=== PATIENT | female | born 1980 | race African-American/Black ===

== ENCOUNTER 2017-03-27 11:03 | Emergency (ER) | payer OTHER ==
[~2017-03-27] VITALS: Ht 190.5 cm; Wt 85.3 kg
[2017-03-27] MEDS ORDERED: IBUPROFEN 600600 M1 PO (11:32)
[2017-03-27] MEDS ORDERED: TIZANIDINE HCL4 MG PO (11:32)
[2017-03-27 11:53] VITALS: BP 120/85
== END 2017-03-27 11:54 | disposition home or self-care (01) ==
LOC: ER 11:03
DX: M54.12 Radiculopathy, cervical region (principal); F17.210 Nicotine dependence, cigarettes, uncomplicated; F10.99 Alcohol use, unspecified with unspecified alcohol-induced disorder; F12.10 Cannabis abuse, uncomplicated; Z88.5 Allergy status to narcotic agent